=== PATIENT | female | born 1990 | race African-American/Black ===

== ENCOUNTER 2016-10-23 12:17 | Emergency (ER) | payer OTHER ==
[~2016-10-23] VITALS: Ht 162.6 cm; Wt 59.4 kg
[2016-10-23] MEDS ORDERED: ZOFR4TAB3 PO (12:34)
[2016-10-23] MEDS ORDERED: PRENTAB55 PO (12:34)
[2016-10-23] MEDS ORDERED: UNISOM (12:34)
[2016-10-23] MEDS ORDERED: ACETAMINOPHEN 325 MG TAB PO ONE (14:15)
[2016-10-23] MEDS ORDERED: METOCLOPRAMIDE 10 MG TAB PO ONE (14:15)
--- NOTE | 2016-10-23 15:21 | REP ---
Clinical: Trauma . Comparison: None . Findings: Examination demonstrates a single live intrauterine in breech presentation. motion is identified by technologist. Placenta is noted anteriorly and grade zero without evidence for placenta previa or abruption. Amniotic fluid volume is normal. Cervix measures 3.6 cm in length and appears closed. Multiple fibroids are identified the largest of which measures 7.2 cm and appears degenerating and pedunculated towards the left adnexa. Gestational age by LMP 18 weeks 3 days with ALEXIS 03/23/2017 . Gestational age by current measurements 19 weeks 6 days with ALEXIS 03/13/2017 . FHR equals 150 beats per minute. Estimated weight 351 grams ( 68th percentile). Anatomical assessment demonstrates normal structures including cranium, choroid plexus, cavum, cerebellum/posterior fossa, lungs, diaphragm, stomach, three-vessel cord, kidneys/bladder, and extremities. Impression: Single live intrauterine in breech presentation. No gross abnormalities are identified and no evidence for trauma. Multiple maternal fibroids. Anatomical assessment is incomplete and warrants reevaluation. Signed by Raymond Mittal MD 10/23/2016 03:12 P
[2016-10-23 15:32] VITALS: BP 97/53
== END 2016-10-23 15:33 | disposition home or self-care (01) ==
LOC: M ED 13:11
DX: O26.892 Other specified pregnancy related conditions, second trimester (principal); O34.12 Maternal care for benign tumor of corpus uteri, second trimester; W19.XXXA Unspecified fall, initial encounter; Y92.9 Unspecified place or not applicable; Y93.9 Activity, unspecified; Y99.9 Unspecified external cause status; Z3A.18 18 weeks gestation of pregnancy; Z79.899 Other long term (current) drug therapy; Z88.0 Allergy status to penicillin; Z91.013 Allergy to seafood

== ENCOUNTER 2016-11-10 14:06 | Emergency (ER) | payer OTHER ==
[~2016-11-10] VITALS: Ht 160 cm; Wt 60.3 kg
[~2016-11-10 14:06] MED LIST: PRENTAB55 PO; UNISOM; ZOFR4TAB3 PO
== END 2016-11-10 14:27 | disposition admitted as inpatient to this hospital (09) ==
LOC: M ED 14:06 → M LDO 14:10 → M ED 14:27
DX: R10.9 Unspecified abdominal pain (principal); Z53.21 Procedure and treatment not carried out due to patient leaving prior to being seen by health care provider

== ENCOUNTER 2016-11-10 14:16 | Outpatient (CLI) | payer OTHER ==
[~2016-11-10] VITALS: Ht 160 cm; Wt 58.0 kg
[2016-11-10 14:28] VITALS: BP 119/64
--- NOTE | 2016-11-11 22:58 | HPE ---
DATE OF ADMISSION: 11/10/2016 This lady is a 26-year-old 2, para 0, abortio 1, last menstrual period (LMP) 06/16/2016, estimated date of confinement (EDC) 03/23/2017, at 21 and 1 weeks' of gestation with pain on her left side of her abdomen and feeling of a mass. Risk factors is she has a multiple fibroid, pedunculated fibroid on the left side, approximately 7 cm PAST HISTORY: In 2014 spontaneous . Labs show O positive, HIV negative, hepatitis negative, RPR negative, rubella immune, Varicella immune by history and antibodies. Pap was normal. Urine was negative. Gonorrhea and chlamydia are negative. Ultrasound October 24: Pedunculated fibroid, 7 cm, on the left side next to the adnexal area and growing with a normal growth and appropriate interval size. On examination, she is in no distress. heart is present. Multiple nodular fibroid uterus, left side, pedunculated noted. Tender to touch, 7.2 cm. Blood pressure 119/64, respirations 18, pulse 107, temperature 99.2. Urine is 1015, pH 6, trace of protein. The rest of the examination is unremarkable. She is normocephalic, atraumatic. Neck: Full range of motion. Pupils equal and reactive to light. Lungs are clear bilaterally to bases. No wheezes or rhonchi. Distal pulses are symmetric. No evidence of deep vein thrombosis (DVT), pulmonary embolism (PE), or superficial phlebitis. No costovertebral angle (CVA) tenderness. Appropriate-size symphysis fundus height. Tender on the left side. One can feel the actual fibroid. There are no rashes, lesions, or pruritus. No arthralgia or myalgia. No complaint of cough, wheeze, shortness of breath, or dyspnea on exertion. No chest pain. No bleeding. Neurologic complete. No incontinence, urgency, or frequency. No nausea, vomiting, diarrhea, or constipation. No diabetic issues. She is an active member of the [employer]. PAST MEDICAL HISTORY: Unremarkable. SURGICAL HISTORY: Unremarkable. SOCIAL HISTORY: She does not smoke, drink, or abuse drugs. There is no domestic violence. After discussion regarding why she has this pain, the fact of the pathophysiology of fibroid enlargement, calcification, degeneration in , and need to take Tylenol, Tylenol Extra Strength, or even Tylenol with codeine. Do not take Advil or ibuprofen. She expressed understanding after 35 minutes of discussion. We talked about precautions, pain management, contractions. She was discharged to followup with her centering appointment next week.
== END 2016-11-10 16:25 | disposition home or self-care (01) ==
LOC: M LDO 14:16
PROVIDERS: ATTEND Obstetrics & Gynecology
DX: O34.12 Maternal care for benign tumor of corpus uteri, second trimester (principal); Z3A.21 21 weeks gestation of pregnancy; Z88.0 Allergy status to penicillin; Z91.013 Allergy to seafood

== ENCOUNTER 2017-02-12 03:15 | Emergency (ER) | payer OTHER ==
[2017-02-12] MEDS ORDERED: DULC100C PO (04:09)
== END 2017-02-12 04:54 | disposition left against medical advice (07) ==
LOC: M ED 03:15
DX: R42 Dizziness and giddiness (principal); Z53.21 Procedure and treatment not carried out due to patient leaving prior to being seen by health care provider

== ENCOUNTER 2017-02-12 03:26 | Outpatient (CLI) | payer OTHER ==
[~2017-02-12] VITALS: Ht 162.6 cm; Wt 65.0 kg
[2017-02-12 03:43] VITALS: BP 111/69
[2017-02-12] MEDS ORDERED: DULC100C PO (04:09)
--- NOTE | 2017-02-12 07:33 | IPNPDOC ---
Text Note Date of Service The patient was seen on 02/12/17. NOTE [id number] @ 0726 RN called at approx 0630- report on patient with a "great FHR tracing" and CTXs Q 2-6 min. S: Resting in bed on left side. States the CTXs are uncomfortable, but not painful and her back is sore O: VS- WNL, afebrile FHR- 125, mod variability, + accels, no decels CTX- Q 2-6 min, lasting < 90 sec, palpated as mild, resting tone palpated as soft Speculum exam with swabs and GC obtained Wet mount- neg clue cells, neg trich KANDICE- negative fungal elements GC- sent SVE- closed/50%/-3, firm/mid A: 26 yo @ 34+3 by LMP and 9 wk US with reassuring and reactive NST. Cervix is closed. P: continue to monitor reassess in 1-2 hours or prn VS,Fishbone, I+O VS, Fishbone, I+O Vital Signs Date Time Temp Pulse Resp B/P (MAP) Pulse Ox O2 Delivery O2 Flow Rate FiO2 02/12/17 03:43 97.5 82 18 111/69 (83) PADMINI BAÑUELOS CNM Feb 12, 2017 07:33
[2017-02-12] MEDS ORDERED: LACTATED RINGER'S 1000 ML IV SCH (09:15)
--- NOTE | 2017-02-12 13:20 | HPE ---
DATE OF ADMISSION: 02/12/2017 This lady is a 26-year-old 2, para 0, abortio 1, last menstrual period is 06/16/2016. Estimated date of confinement (EDC) is 03/23/2017 at 34 and 3 weeks of gestation, drove from [facility] to [facility] and now [facility] on a regular basis. She was admitted to triage at 0300 hours in the morning but was not seen until 0730 hours in the a.m. as the physician was not notified until that time. Her risk factors is she has anemia, fibroid uterus, persistent nausea and vomiting. Labs are O+, HIV negative, hepatitis negative, RPR negative, rubella immune. Varicella immune. Pap normal. Urine negative. Gonorrhea and chlamydia are negative. 1-hour glucose was 98. Cystic fibrosis declined, quad screen declined. PHYSICAL EXAMINATION: She has no distress. Symphysis fundus height is 34, vertex, posterior, finger tip, not dilated, thick. No vaginal bleeding or loss. Blood pressure is 120/80, respirations 18, pulse 76, temperature 98.0. Urine is 10/15, 1+ ketones, trace of protein and pH of five. The rest the examination is unremarkable. She does now have a category one strip. Accelerations 15 x 15 for 15 seconds, contractions that spaced out from 2-5 minutes to prolonged just uterine irritability after rehydration. She is normocephalic, atraumatic. Neck: Full range of motions. Pupils equal and reactive to light. Distal pulses symmetric. No evidence of DVT, PE or superficial phlebitis. Lungs are clear bilaterally to the bases. No wheezes, rales, or rhonchi. Symphysis fundus height is appropriate. Four quadrant bowel sounds are noted. No rashes, lesions or pruritus. No arthralgias or myalgias. No complaints of cough, wheeze, shortness of breath or dyspnea on exertion. No chest pain. No bleeding. Neuro complete. No incontinency, urgency, or frequency. She has nausea and vomiting which persists and is intermittent. No diarrhea or constipation. No diabetic issues. 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 Past surgical and medical history unremarkable. FAMILY HISTORY: Noncontributory. SOCIAL HISTORY: She is active duty. No tobacco or alcohol. No drug abuse. No domestic violence. Partner is not involved. In summary, we have a 34 week with dehydration and contractions. Our plan of management is to rehydrate with an IV, test urine until ketone negative, monitor and make sure contractions are spaced out. Discharge with precautions and has a followup in 48 hours in the office.
== END 2017-02-12 12:10 | disposition home or self-care (01) ==
LOC: M LDO 03:26
PROVIDERS: ATTEND Midwife
DX: O26.893 Other specified pregnancy related conditions, third trimester (principal); Z3A.34 34 weeks gestation of pregnancy; R10.9 Unspecified abdominal pain; R60.0 Localized edema; O62.0 Primary inadequate contractions; E86.0 Dehydration; D64.9 Anemia, unspecified; D25.9 Leiomyoma of uterus, unspecified; R11.2 Nausea with vomiting, unspecified; Z88.0 Allergy status to penicillin; Z91.013 Allergy to seafood; O34.13 Maternal care for benign tumor of corpus uteri, third trimester; O99.013 Anemia complicating pregnancy, third trimester

== ENCOUNTER 2017-07-25 10:02 | Emergency (ER) | payer OTHER ==
[2017-07-25 12:08] LABS: BASO % 0.5 % (0.0-1.0); EOS # 0.1 10^3/uL (0.0-0.50); EOS % 1.1 % (0.0-3.0); IMMATURE GRANULOCYTE % 0.5 % (0-0); LYMPH # 0.9 10^3/uL (1.5-6.5); LYMPH % 20.3 % (24.0-44.0); MEAN CORPUSCULAR HEMOGLOBIN 31.2 pg (27.0-33.0); MEAN CORPUSCULAR HGB CONC 33.9 g/dl (32.0-36.5); MEAN CORPUSCULAR VOLUME 91.9 fl (80.0-96.0); MONO # 0.5 10^3/uL (0.0-0.8); MONO % 11.4 % (0.0-5.0); NEUTROPHILS # 2.9 10^3/uL (1.8-7.7); NEUTROPHILS % 66.2 % (36.0-66.0); PLATELET COUNT, AUTOMATED 312 10^3/uL (150-450); RED CELL DISTRIBUTION WIDTH 12.5 % (11.5-14.5); WHITE BLOOD COUNT 4.4 10^3/uL (4.0-10.0)
[2017-07-25] MEDS: ONDANSETRON 4MG/2ML VIAL (J2405) IV ×2 (12:43)
[2017-07-25] MEDS: KETOROLAC 30 MG/ML VIAL (J1885) IV ×2 (12:44)
[2017-07-25 13:19] LABS: ALBUMIN 3.4 GM/DL (3.2-5.2); ALBUMIN/GLOBULIN RATIO 0.74 (1.00-1.93); ALKALINE PHOSPHATASE 86 U/L (45-117); ALT/SGPT 16 U/L (12-78); AMYLASE 44 U/L (25-115); ANION GAP 6 MEQ/L (8-16); AST/SGOT 18 U/L (7-37); BILIRUBIN,TOTAL 0.4 MG/DL (0.2-1.0); BLOOD UREA NITROGEN 10 MG/DL (7-18); CALCIUM LEVEL 8.8 MG/DL (8.5-10.1); CARBON DIOXIDE LEVEL 29 MEQ/L (21-32); CHLORIDE LEVEL 103 MEQ/L (98-107); GLOMERULAR FILTRATION RATE > 60.0 (>60); GLUCOSE, FASTING 83 MG/DL (70-105); POTASSIUM SERUM 3.9 MEQ/L (3.5-5.1); SODIUM LEVEL 138 MEQ/L (136-145)
== END 2017-07-25 13:43 | disposition home or self-care (01) ==
LOC: M ED 10:02
DX: R10.10 Upper abdominal pain, unspecified (principal); R11.2 Nausea with vomiting, unspecified; M54.9 Dorsalgia, unspecified; Z79.899 Other long term (current) drug therapy; Z91.013 Allergy to seafood; Z88.0 Allergy status to penicillin
CPT/HCPCS: J2405

== ENCOUNTER 2017-12-12 10:05 | Emergency (ER) | payer OTHER ==
[2017-12-12] MEDS: KETOROLAC 60 MG/2 ML VIAL (J1885) IM (10:42)
[2017-12-12] MEDS ORDERED: CYCLOBENZAPRINE 10 MG TAB PO (10:45)
== END 2017-12-12 11:09 | disposition home or self-care (01) ==
LOC: M ED 10:05
DX: M54.5 Low back pain (principal); G89.29 Other chronic pain; Z88.0 Allergy status to penicillin; Z91.013 Allergy to seafood
CPT/HCPCS: J1885

== ENCOUNTER 2018-06-18 09:33 | Emergency (ER) | payer OTHER | END 2018-06-18 11:08 | disposition home or self-care (01) | LOC: M ED 09:33 | DX: J32.9 Chronic sinusitis, unspecified (principal) | CPT/HCPCS: 99283 ==

== ENCOUNTER 2018-08-08 12:28 | Emergency (ER) | payer OTHER ==
[~2018-08-08] VITALS: Ht 162.6 cm; Wt 64.7 kg
[~2018-08-08 12:28] MED LIST changes: +AFRI0.056; +ALLE12TA31 PO; +CYCL10TA PO; +DULC100C PO; +FLON1SPR NARES; +IBUP200T45 PO; +KETO10TAB PO; +OCEL3TAB; +SUDAFED; +ZOFR4TAB14 PO; -ZOFR4TAB3 PO
[2018-08-08] MEDS ORDERED: METR-201 PO (12:34)
[2018-08-08] MEDS ORDERED: ONDANSETRON 4 MG ORAL DISINTEGRATING TAB (Q0162 PER 1MG) PO ONE (13:30)
[2018-08-08 14:24] VITALS: BP 109/73
[2018-08-08] MEDS ORDERED: ZOFR4TAB14 PO (14:25)
[2018-08-08] MEDS ORDERED: ZOFR4TAB16 PO (14:38)
== END 2018-08-08 14:29 | disposition home or self-care (01) ==
LOC: M ED 12:28
DX: R10.9 Unspecified abdominal pain (principal); R11.2 Nausea with vomiting, unspecified; T37.3X5A Adverse effect of other antiprotozoal drugs, initial encounter; X58.XXXA Exposure to other specified factors, initial encounter; Y92.89 Other specified places as the place of occurrence of the external cause; Z79.899 Other long term (current) drug therapy; Z79.3 Long term (current) use of hormonal contraceptives; Z88.0 Allergy status to penicillin; Z91.013 Allergy to seafood
CPT/HCPCS: 99283; Q0162

== ENCOUNTER 2018-10-19 14:55 | Emergency (ER) | payer OTHER ==
[~2018-10-19] VITALS: Ht 162.6 cm; Wt 63.6 kg
[~2018-10-19 14:55] MED LIST changes: +METR-201 PO; +ZOFR4TAB16 PO
[2018-10-19 16:10] VITALS: BP 131/85
== END 2018-10-19 16:49 | disposition home or self-care (01) ==
LOC: M ED 14:55
DX: J70.5 Respiratory conditions due to smoke inhalation (principal); Z72.0 Tobacco use; Z79.899 Other long term (current) drug therapy; Z88.0 Allergy status to penicillin; Z91.013 Allergy to seafood